=== PATIENT | female | born 1975 | race Caucasian/White ===

== ENCOUNTER 2024-07-23 01:18 | Emergency (ER) | payer OTHER ==
[~2024-07-23] VITALS: Ht 172.7 cm; Wt 64.3 kg
[2024-07-23 01:21] VITALS: BP 109/57; PULSE 78
[2024-07-23] MEDS: acetaminophen 325mg tablet PO ONE (01:50)
[2024-07-23] MEDS: triamcinolone acetonide 40mg/ml inj IJ ONE (02:01)
[2024-07-23] MEDS: LIDOcaine 1% W/epiNEPHrine 1:100,000 20ml vial IJ ONE (02:01)
[2024-07-23] MEDS ORDERED: HYDR-3965 PO (02:21)
[2024-07-23] MEDS: ondansetron 4mg rapidly disintigrating tab PO ONE (02:33)
[2024-07-23 02:34] VITALS: TEMP 98.7; O2SAT 100
[2024-07-23] MEDS: HYDROcodone/acetaminophen 5mg/325mg tablet PO ONE (02:34)
[2024-07-23 02:39] VITALS: RESP 15
== END 2024-07-23 02:41 | disposition home or self-care (01) ==
LOC: ER 01:18
DX: M25.511 Pain in right shoulder (principal); I49.9 Cardiac arrhythmia, unspecified
CPT/HCPCS: 73030; 93005; 99284